=== PATIENT | male | born 1980 | race Caucasian/White ===

== ENCOUNTER 2020-09-14 09:46 | Outpatient (CLI) | payer BC, SELFPAY ==
[2020-09-15 15:13] LABS: COVID-19 RT-PCR UVMMC Result Negative (Negative)
== END 2020-09-14 09:47 | disposition home or self-care (01) ==
LOC: LBO 09:46
PROVIDERS: PCP Family Medicine; Visit Provider Family Medicine
DX: Z20.828 Contact with and (suspected) exposure to other viral communicable diseases (principal)
CPT/HCPCS: U0003

== ENCOUNTER 2024-02-06 09:22 | Outpatient (CLI) | payer BC, SELFPAY ==
[2024-02-06 12:53] LABS: ALT 24 U/L (16-63); AST 13 U/L (15-37); Albumin 4.2 g/dL (3.4-5.0); Alkaline Phosphatase 98 U/L (46-116); Anion Gap 8.5 mmol/L (3-11); BUN 21 mg/dL (7-18); CO2 29.5 mmol/L (21.0-32.0); CREATININE 0.9 mg/dL (0.70-1.30); Calcium 8.9 mg/dL (8.5-10.1); Calculated LDL 94 mg/dL (<100); Chloride 101 mmol/L (98-107); Cholesterol 167 mg/dL (<200); Estimated GFR 110.04 (mL/min/1.73m2); Glucose 123 mg/dL (74-106); HDL Cholesterol 37 mg/dL (40-60); Sodium 139 mmol/L (136-145); Total Protein 7.8 g/dL (6.4-8.2); Triglyceride 184 mg/dL (<150)
[2024-02-07 09:32] LABS: Hepatitis C Ab w Rflx HCV PCR Negative (Negative)
== END 2024-02-06 09:23 | disposition home or self-care (01) ==
LOC: LOS 09:22
PROVIDERS: PCP Family Medicine; Referring Provider Family Medicine; Visit Provider Family Medicine
DX: Z00.00 Encounter for general adult medical examination without abnormal findings (principal)
CPT/HCPCS: 36415; 80053; 80061; 86803

== ENCOUNTER 2024-09-11 17:00 | Outpatient (CLI) | payer BC, SELFPAY ==
--- NOTE | 2024-09-11 | DI.RAD_ITS ---
Exam(s) XR TOE RT GREAT EXAM: XR TOE RT GREAT CLINICAL HISTORY: M79.674 Pain in Rt toes. TECHNIQUE: 2D digital imaging was performed. COMPARISON: No exams were available for comparison FINDINGS: 3 views There is a nondisplaced oblique fracture on the medial aspect of the base of the distal phalanx of th e great toe. This is intra-articular. No other fractures identified. No radiopaque foreign body IMPRESSION: Oblique nondisplaced fracture on the medial aspect of the base of the distal phalanx of the great toe . DATA REPOSITORY: RADIATION DOSE DELIVERED:
--- NOTE | 2024-09-11 17:34 | DI.VRAD_ITS ---
PROCEDURE INFORMATION: Exam: XR Right Toe(s) Exam date and time: 09/11/2024 5:01 PM Age: 43 years old Clinical indication: Pain; Toes; Right TECHNIQUE: Imaging protocol: Radiologic exam of the right toes. Views: Minimum 2 views. COMPARISON: No relevant prior studies available. FINDINGS: Bones/joints: Intra-articular fracture base of the medial aspect of the 1st distal phalanx. Soft tissues: Soft tissue swelling. IMPRESSION: Intra-articular fracture proximal 1st distal phalanx. . Dictated and Authenticated by: Phoebe Mitchell MD. Orderin Annie Agustin MD
== END 2024-09-11 17:20 ==
PROVIDERS: PCP Family Medicine; Visit Provider Physician Assistant Medical
DX: S92.424A Nondisplaced fracture of distal phalanx of right great toe, initial encounter for closed fracture (principal); X58.XXXA Exposure to other specified factors, initial encounter
CPT/HCPCS: 73660

== ENCOUNTER 2024-10-05 00:11 | Outpatient (CLI) | payer BC, SELFPAY ==
--- NOTE | 2024-10-05 12:22 | DI.RAD_ITS ---
Exam(s) XR TOE RT GREAT EXAM: XR TOE RT GREAT CLINICAL HISTORY: ? healing, fx rt great toe,S92.401a. TECHNIQUE: 2D digital imaging was performed. COMPARISON: CR,XR XR TOE RT GREAT from 09/11/2024 FINDINGS: BONES: Stable alignment of fracture at the medial corner of the distal phalanx of the great toe. No new fractures. No bony destructive lesion is seen. JOINTS: No dislocation present. SOFT TISSUE: Normal. IMPRESSION: Stable fracture alignment. Some interval healing. DATA REPOSITORY: RADIATION DOSE DELIVERED:
== END 2024-10-05 00:31 ==
LOC: DI 00:12
PROVIDERS: PCP Family Medicine; Visit Provider Podiatrist
DX: S92.424D Nondisplaced fracture of distal phalanx of right great toe, subsequent encounter for fracture with routine healing (principal); X58.XXXD Exposure to other specified factors, subsequent encounter
CPT/HCPCS: 73660

== ENCOUNTER 2024-10-26 02:40 | Outpatient (CLI) | payer BC, SELFPAY ==
--- NOTE | 2024-10-26 06:30 | DI.RAD_ITS ---
Exam(s) XR TOE RT GREAT EXAM: XR TOE RT GREAT CLINICAL HISTORY: ? HEALED,NONDISPLACED FX DISTAL PHALANX RT GREAT TOE,S92.424A. TECHNIQUE: 2D digital imaging was performed. COMPARISON: CR XR TOE RT GREAT from 10/05/2024 FINDINGS: BONES: Stable alignment of fracture at the distal phalanx the great toe. Fracture line remains visi ble. No bony destructive lesion is seen. JOINTS: No dislocation present. SOFT TISSUE: Normal. IMPRESSION: Some interval healing of distal phalangeal fracture of the great toe. DATA REPOSITORY: RADIATION DOSE DELIVERED:
== END 2024-10-26 03:00 ==
LOC: DI 02:40
PROVIDERS: PCP Family Medicine; Visit Provider Podiatrist
DX: S92.424D Nondisplaced fracture of distal phalanx of right great toe, subsequent encounter for fracture with routine healing (principal); X58.XXXD Exposure to other specified factors, subsequent encounter
CPT/HCPCS: 73660

== ENCOUNTER 2024-11-24 01:31 | Outpatient (CLI) | payer BC, SELFPAY ==
--- NOTE | 2024-11-24 06:30 | DI.RAD_ITS ---
Exam(s) XR TOE RT GREAT EXAM: XR TOE RT GREAT CLINICAL HISTORY: ? healing,nondisplaced fx rt great toe,s92.424a,s92.401a,fx great toe. TECHNIQUE: 2D digital imaging was performed. Three images were obtained. COMPARISON: CR,XR XR TOE RT GREAT from 09/11/2024 CR XR TOE RT GREAT from 10/26/2024 FINDINGS: BONES: There has been no change in alignment of the fracture of the base of the distal phalanx of the great toe. There does appear to be some healing of the fracture laterally, but the fracture line is still visualized medially. No bony destructive lesion is seen. JOINTS: No dislocation present. SOFT TISSUE: Normal. IMPRESSION: Stable alignment of the fracture involving the distal phalanx of the great toe. There does appear to be some interval healing particularly laterally. There is continued concern, a CT scan may be considered. DATA REPOSITORY: RADIATION DOSE DELIVERED:
== END 2024-11-24 01:51 ==
LOC: DI 01:31
PROVIDERS: PCP Family Medicine; Visit Provider Podiatrist
DX: S92.424D Nondisplaced fracture of distal phalanx of right great toe, subsequent encounter for fracture with routine healing (principal); X58.XXXD Exposure to other specified factors, subsequent encounter
CPT/HCPCS: 73660

== ENCOUNTER 2024-11-25 15:08 | Outpatient (CLI) | payer BC, SELFPAY ==
[2024-11-25 16:37] LABS: Vitamin D 25 Total 18 ng/mL (30-100)
== END 2024-11-25 15:09 | disposition home or self-care (01) ==
LOC: LBO 15:09
PROVIDERS: PCP Family Medicine; Visit Provider Podiatrist
DX: R79.89 Other specified abnormal findings of blood chemistry (principal)
CPT/HCPCS: 36415; 82306

== ENCOUNTER 2024-12-30 01:41 | Outpatient (CLI) | payer BC, SELFPAY ==
--- NOTE | 2024-12-30 07:45 | DI.RAD_ITS ---
Exam(s) XR TOE RT GREAT EXAM: XR TOE RT GREAT CLINICAL HISTORY: ? HEALING,NONDISPLACED FX RT GREAT TOE,CONTUSION RT FOOT,S90.31XA,S92.424A,. TECHNIQUE: 2D digital imaging was performed. COMPARISON: CR XR TOE RT GREAT from 11/24/2024 FINDINGS: BONES: There has been continued healing at the fracture at the base of the distal phalanx of the great toe. Fracture line remains visible. No new abnormalities. No bony destructive lesion is seen. JOINTS: No dislocation present. No significant degenerative changes. SOFT TISSUE: Normal. IMPRESSION: Continued healing of distal phalangeal fracture. DATA REPOSITORY: RADIATION DOSE DELIVERED:
== END 2024-12-30 02:01 ==
LOC: DI 01:42
PROVIDERS: PCP Family Medicine; Visit Provider Podiatrist
DX: R79.89 Other specified abnormal findings of blood chemistry (principal); S90.31XD Contusion of right foot, subsequent encounter; S92.424D Nondisplaced fracture of distal phalanx of right great toe, subsequent encounter for fracture with routine healing; X58.XXXD Exposure to other specified factors, subsequent encounter
CPT/HCPCS: 73660

== ENCOUNTER 2025-03-03 01:35 | Outpatient (CLI) | payer BC, SELFPAY ==
--- NOTE | 2025-03-03 06:15 | DI.RAD_ITS ---
Exam(s) XR TOE RT GREAT EXAM: XR TOE RT GREAT CLINICAL HISTORY: ? healing, nondisplaced fx distal phalanx rt great toe,s92.424k. TECHNIQUE: 2D digital imaging was performed. Three images were obtained. COMPARISON: CR,XR XR TOE RT GREAT from 09/11/2024 CR XR TOE RT GREAT from 12/30/2024 FINDINGS: BONES: The fracture through the base of the distal phalanx of the great toe appears healed. No acute fractures identified. No bony destructive lesion is seen. JOINTS: No dislocation present. SOFT TISSUE: Normal. IMPRESSION: The fracture through the base of the distal phalanx of the great toe appears healed. DATA REPOSITORY: RADIATION DOSE DELIVERED:
== END 2025-03-03 01:55 ==
PROVIDERS: PCP Family Medicine; Visit Provider Podiatrist
DX: S92.424D Nondisplaced fracture of distal phalanx of right great toe, subsequent encounter for fracture with routine healing (principal); X58.XXXD Exposure to other specified factors, subsequent encounter
CPT/HCPCS: 73660

== ENCOUNTER 2025-03-04 00:49 | Outpatient (CLI) | payer BC, SELFPAY ==
[2025-03-04 15:07] LABS: Vitamin D 25 Total 71 ng/mL (30-100)
== END 2025-03-04 00:50 | disposition home or self-care (01) ==
LOC: LOS 00:50
PROVIDERS: PCP Family Medicine; Visit Provider Family Medicine
DX: R79.89 Other specified abnormal findings of blood chemistry (principal)
CPT/HCPCS: 36415; 82306